=== PATIENT | male | born 1980 | race Caucasian/White ===

== ENCOUNTER 2017-03-25 16:04 | Emergency (ER) | payer OTHER ==
[~2017-03-25] VITALS: Ht 182.9 cm; Wt 99.6 kg
[~2017-03-25 16:04] MED LIST: NAPR1TAB9 PO; PANT40TA PO
[2017-03-25 16:13] VITALS: TEMP 36.4; Ht 182.9 cm; Wt 99.6 kg
[2017-03-25 16:48] VITALS: O2SAT 98
[2017-03-25 17:24] LABS: BASO % 0.6 %; BASO ABS # 0.06 K/uL (0-0.2); COMPLETE YES; EOS % 8.5 %; HEMATOCRIT 47.2 % (42-52); IG% 0.9 %; LYMPH % 28.8 %; MEAN CELL VOLUME 86.1 fL (80-100); MEAN CORPUSCULAR HEMOGLOBIN 28.8 pg (25-34); MEAN CORPUSCULAR HGB CONC 33.5 g/dl (32-36); MEAN PLATELET VOLUME 10.5 fL (7.4-10.4); MONO % 6.7 %; NEUT % 54.5 %; PLATELET COUNT 224 K/uL (130-400); RED BLOOD COUNT 5.48 M/uL (4.7-6.1); WHITE BLOOD COUNT 9.39 K/uL (4.8-10.8)
--- NOTE | 2017-03-25 17:26 | EMERGENCY ROOM VISIT NOTE ---
History First contact with patient: 16:47 Chief Complaint: CHEST PAIN Stated Complaint: THROAT/CHEST/LF ARM PAIN History of Present Illness The patient is a 36 year old male who presents to the Emergency Room with complaints of chest pain. The patient states that approximately 4 hours ago he developed pain in the middle of his chest that radiated to his neck. He states that this made him feel very worried that he was having a heart attack. He states that he then developed pain in his left arm. He states that he feels as though he had a panic attack. He denies any fevers. He denies any chills. He denies any urinary, sore throat, cough. He denies any shortness of breath or pain with deep inspiration. He denies any abdominal pain, nausea or vomiting. He states that he was moving heavy furniture over the weekend for his mother and strained his back. He denies any falls. The patient has a history of GERD but has not been taking his Protonix. He states that his grandmother had CABG but denies any other family history of coronary artery disease. He denies any personal history of cardiac disease. He has had similar symptoms in the past. Review of Systems A 10 system review of systems was completed with positives and pertinent negatives listed in the HPI. Past Medical/Surgical History Medical Problems: (1) GERD (gastroesophageal reflux disease) Social History Smoking Status: Never Smoker Drug Use: none Marital Status: single Housing Status: lives alone Current/Historical Medications Scheduled PRN Naproxen (Aleve), 220 MG PO UD PRN for Pain Allergies Coded Allergies: Nut Tree (Verified Allergy, Unknown, ITCHY LIPS AND THROAT, 03/23/16) Physical Exam Vital Signs Date Time Temp Pulse Resp B/P (MAP) Pulse Ox O2 Delivery O2 Flow Rate FiO2 03/25/17 18:00 67 18 124/79 100 Room Air 03/25/17 16:51 74 03/25/17 16:48 98 Room Air 03/25/17 16:36 56 18 144/89 98 Room Air 03/25/17 16:15 96 Room Air 03/25/17 16:13 36.4 75 18 133/83 94 Room Air Physical Exam VITALS: Vitals are noted on the nurse's note and reviewed by myself. Vital signs stable. The patient is afebrile. He is not tachycardic, tachypneic or hypoxic. GENERAL: This is a 36-year-old male, in no acute distress, nondiaphoretic, well- developed well-nourished. SKIN: The skin was without rashes, erythema, edema, or bruising. There is no tenting of the skin. Capillary reflex less than 2 seconds. HEAD: Normocephalic atraumatic. EARS: The external ears normal in appearance. EYES: Pupils equal round and reactive to light and accommodation. Conjunctivae without injection, sclerae without icterus. Extraocular movements intact. NOSE: Patent, turbinates without inflammation or discharge. MOUTH: Mucous membranes moist. Tonsils are not enlarged. Pharynx without erythema or exudate. Uvula midline. Airway patent. Tongue does not deviate. NECK: Supple without nuchal rigidity. No lymphadenopathy. No thyromegaly. Cervical spine is nontender. No JVD. HEART: Regular rate and rhythm without murmurs gallops or rubs. LUNGS: Clear to auscultation bilaterally without wheezes, rales or rhonchi. No retractions or accessory muscle use. ABDOMEN: Positive bowel sounds x 4. Soft, nontender, without masses or organomegaly. MUSCULOSKELETAL: No muscle atrophy, erythema, or edema noted. Full range of motion in all extremities. Strength 5/5 throughout. NEURO: Patient was alert and oriented to person place and time. No focal neurological deficits. Medical Decision & Procedures ER Provider Diagnostic Interpretation: SINGLE VIEW CHEST CLINICAL HISTORY: Atypical chest pain. FINDINGS: 2 AP, portable, upright chest radiographs are compared to study dated 03/10/2016. The examination is degraded by portable technique and patient rotation. The cardiomediastinal silhouette is unremarkable. The lungs and pleural spaces are clear. No pneumothorax is seen. The bony thorax is grossly intact. IMPRESSION: No active disease in the chest. Laboratory Results 03/25/17 16:45 Red Blood Count 5.48, Mean Corpuscular Volume 86.1, Mean Corpuscular Hemoglobin 28.8, Mean Corpuscular Hemoglobin Concent 33.5, Mean Platelet Volume 10.5, Neutrophils (%) (Auto) 54.5, Lymphocytes (%) (Auto) 28.8, Monocytes (%) (Auto) 6.7, Eosinophils (%) (Auto) 8.5, Basophils (%) (Auto) 0.6, Neutrophils # (Auto) 5.12, Lymphocytes # (Auto) 2.70, Monocytes # (Auto) 0.63, Eosinophils # (Auto) 0.80, Basophils # (Auto) 0.06 03/25/17 16:45 Test 03/25/17 16:45 White Blood Count 9.39 K/uL (4.8-10.8) Red Blood Count 5.48 M/uL (4.7-6.1) Hemoglobin 15.8 g/dL (14.0-18.0) Hematocrit 47.2 % (42-52) Mean Corpuscular Volume 86.1 fL (80-100) Mean Corpuscular Hemoglobin 28.8 pg (25-34) Mean Corpuscular Hemoglobin Concent 33.5 g/dl (32-36) Platelet Count 224 K/uL (130-400) Mean Platelet Volume 10.5 fL (7.4-10.4) Neutrophils (%) (Auto) 54.5 % Lymphocytes (%) (Auto) 28.8 % Monocytes (%) (Auto) 6.7 % Eosinophils (%) (Auto) 8.5 % Basophils (%) (Auto) 0.6 % Neutrophils # (Auto) 5.12 K/uL (1.4-6.5) Lymphocytes # (Auto) 2.70 K/uL (1.2-3.4) Monocytes # (Auto) 0.63 K/uL (0.11-0.59) Eosinophils # (Auto) 0.80 K/uL (0-0.5) Basophils # (Auto) 0.06 K/uL (0-0.2) RDW Standard Deviation 40.5 fL (36.4-46.3) RDW Coefficient of Variation 12.8 % (11.5-14.5) Immature Granulocyte % (Auto) 0.9 % Immature Granulocyte # (Auto) 0.08 K/uL (0.00-0.02) Anion Gap 4.0 mmol/L (3-11) Est Creatinine Clear Calc Drug Dose 103.0 ml/min Estimated GFR () 89.0 Estimated GFR (Non- 76.8 BUN/Creatinine Ratio 8.6 (10-20) Calcium Level 8.5 mg/dl (8.5-10.1) Total Bilirubin 0.3 mg/dl (0.2-1) Aspartate Amino Transf (AST/SGOT) 14 U/L (15-37) Alanine Aminotransferase (ALT/SGPT) 20 U/L (12-78) Alkaline Phosphatase 109 U/L (45-117) Total Protein 7.6 gm/dl (6.4-8.2) Albumin 4.1 gm/dl (3.4-5.0) Globulin 3.5 gm/dl (2.5-4.0) Albumin/Globulin Ratio 1.2 (0.9-2) Procedure The patient was monitored on a care administrative tech. They maintained a normal sinus rhythm without ectopy. ECG Indication: chest pain Rate (beats per minute): 69 Rhythm: normal sinus Findings: no acute ischemic change Change: no significant change ED Course The patient was seen and examined. Previous visits were reviewed. The patient does not have a fever or leukocytosis. He does not have any significant electrolyte abnormality. [id number] troponin was 0. Chest x-ray does not reveal any acute abnormality EKG does not reveal any arrhythmia or ischemia The patient presents to the emergency department with chest pain. The patient moved every furniture yesterday and this could be related to musculoskeletal pain. Additionally, he stopped taking his Protonix. He was advised to take a proton pump inhibitor as recommended by his doctor. The patient does admit to having anxiety and panic attack about chest pain. There does not appear to be any acute ischemia at this time. The patient's pain has been persistent for at least 4 hours and he has negative troponin. He should recheck with his family doctor next week. He should return to the ER with any worsening symptoms. The case was discussed with Dr. Epps who agrees with the assessment and treatment plan. Medical Decision DIFFERENTIAL DIAGNOSIS: Aortic dissection, myocarditis, pericarditis, cervical disc disease, costochondritis, herpes zoster, rib fracture, pleuritis, pneumonia , pulmonary embolus, tension pneumothorax, anxiety disorder, somatoform disorder , choledocholithiasis, status, esophagitis, esophageal spasm, esophageal reflux , esophageal rupture, pancreatitis, peptic ulcer disease, cardiac ischemia, ST elevation [place], acute coronary syndrome, arrhythmia, coronary artery vasospasm. vavular heart disease, coronary artery disease, among others. Impression Primary Impression: Substernal precordial chest pain Departure Information Dispostion Home / Self-Care Condition GOOD Referrals Semaj Roman M.D. (PCP) Patient Instructions Acid Reflux, Chest Pain - [facility], [facility] Additional Instructions restart your stomach medication You may try omeprazole over the counter Recheck with your family doctor next week Return with worsening symptoms
[2017-03-25 17:31] LABS: BUN/CREATININE RATIO 8.6 (10-20); CALCIUM 8.5 mg/dl (8.5-10.1); CREATININE 1.2 mg/dl (0.60-1.40); POTASSIUM 3.8 mmol/L (3.5-5.1)
[2017-03-25 17:33] LABS: ALB/GLOB RATIO 1.2 (0.9-2)
--- NOTE | 2017-03-25 17:49 | DIAGNOSTIC IMAGING REPORT ---
SINGLE VIEW CHEST CLINICAL HISTORY: Atypical chest pain. FINDINGS: 2 AP, portable, upright chest radiographs are compared to study dated 03/10/2016. The examination is degraded by portable technique and patient rotation. The cardiomediastinal silhouette is unremarkable. The lungs and pleural spaces are clear. No pneumothorax is seen. The bony thorax is grossly intact. IMPRESSION: No active disease in the chest. Electronically signed by: Skyler Barkley M.D. 03/25/2017 5:47 PM Dictated Date/Time: 03/25/2017 5:47 PM
[2017-03-25 18:00] VITALS: BP 124/79; PULSE 67; O2SAT 100
== END 2017-03-25 18:25 | disposition home or self-care (01) ==
LOC: C.EDB 16:05 → C.EDA 18:25
DX: R07.2 Precordial pain (principal); K21.9 Gastro-esophageal reflux disease without esophagitis

== ENCOUNTER 2017-08-02 06:44 | Emergency (ER) | payer OTHER ==
[~2017-08-02] VITALS: Ht 182.9 cm; Wt 99.0 kg
[~2017-08-02 06:44] MED LIST changes: -PANT40TA PO
[2017-08-02 06:50] VITALS: TEMP 36.7; Ht 182.9 cm; Wt 99.0 kg
[2017-08-02 07:12] VITALS: O2SAT 97
--- NOTE | 2017-08-02 07:25 | DIAGNOSTIC IMAGING REPORT ---
SINGLE VIEW CHEST CLINICAL HISTORY: Fever. Sepsis. FINDINGS: An AP, portable, upright chest radiograph is compared to study dated 03/25/2017. The examination is degraded by portable technique and apical lordotic positioning. The cardiomediastinal silhouette is unremarkable. The lungs and pleural spaces are clear. No pneumothorax is seen. The bony thorax is grossly intact. IMPRESSION: No active disease in the chest. Electronically signed by: Skyler Barkley M.D. 08/02/2017 7:24 AM Dictated Date/Time: 08/02/2017 7:24 AM
[2017-08-02 07:30] LABS: ISTAT CREATININE 1.2 mg/dl (0.6-1.3); ISTAT HEMOGLOBIN 15.6 g/dl (14.0-18.0); ISTAT IONIZED CALCIUM 1.19 mmol/l (1.12-1.32)
[2017-08-02 07:34] LABS: POINT OF CARE TROPONIN I < 0.030 ng/ml (0-0.045)
--- NOTE | 2017-08-02 07:52 | EMERGENCY ROOM VISIT NOTE ---
History Report prepared by Kenyetta: Josefa Funez Under the Supervision of: Dr. Jermain Sanchez D.O. First contact with patient: 06:54 Chief Complaint: CHEST PAIN Stated Complaint: CHEST,ARM [place] History of Present Illness The patient is a 37 year old male who presents to the Emergency Room with complaints of weird sharp pain in the left chest. The left arm got numb as well. 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 No associated symptoms. Denies trouble breathing. No recent illness, fevers, chills or cough. No nausea, vomiting, diaphoresis. Has had similar symptoms a couple months ago. Can't remember the events surrounding that event. Today the patient was sleeping, awoke, and the pain then started. He thinks he was moving when the pain started. No exertional symptoms recently. The pain is gone now. Source of History: patient Onset: 30 minutes prior to arrival Position: chest (left) Quality: sharp Timing: resolved Associated Symptoms: + numbness (left arm), No fevers, No chills, No diaphoresis, No cough, No nausea, No vomiting Review of Systems As above otherwise negative for 10 systems Past Medical & Surgical Medical Problems: (1) GERD (gastroesophageal reflux disease) Family History Cancer Diabetes mellitus Social History Smoking Status: Never Smoker Drug Use: none Marital Status: single Housing Status: lives alone Current/Historical Medications No Active Prescriptions or Reported Meds Allergies Coded Allergies: Nut Tree (Verified Allergy, Unknown, ITCHY LIPS AND THROAT, 08/02/17) Physical Exam Vital Signs Date Time Temp Pulse Resp B/P (MAP) Pulse Ox O2 Delivery O2 Flow Rate FiO2 08/02/17 07:59 60 18 135/82 97 08/02/17 07:24 97 Room Air 08/02/17 07:13 65 08/02/17 07:12 97 Room Air 08/02/17 06:50 36.7 65 18 135/82 97 Room Air Physical Exam CONSTITUTIONAL/VITAL SIGNS: Reviewed / noted above. GENERAL: Non-toxic in appearance. INTEGUMENTARY: Warm, dry, and [place]. HEAD: Normocephalic. EYES: without scleral icterus or trauma. ENT/OROPHARYNX: clear and moist. LYMPHADENOPATHY/NECK: Is supple without lymphadenopathy or meningismus. RESPIRATORY: Lungs clear and equal. CARDIOVASCULAR: Regular rate and rhythm. GI/ABDOMEN: Soft and nontender. No organomegaly or pulsatile mass. No rebound or guarding. Normal bowel sounds. EXTREMITIES: Warm and well perfused. BACK: No CVA tenderness. NEUROLOGICAL: Intact without focal deficits. PSYCHIATRIC: normal affect. MUSCULOSKELETAL: Normally developed with good muscle tone. TRIAGE NURSING DOCUMENTATION REVIEWED. Medical Decision & Procedures ER Provider Diagnostic Interpretation: X ray results and stated below per my interpretation and radiology interpretation. SINGLE VIEW CHEST CLINICAL HISTORY: Fever. Sepsis. FINDINGS: An AP, portable, upright chest radiograph is compared to study dated 03/25/2017. The examination is degraded by portable technique and apical lordotic positioning. The cardiomediastinal silhouette is unremarkable. The lungs and pleural spaces are clear. No pneumothorax is seen. The bony thorax is grossly intact. IMPRESSION: No active disease in the chest. Electronically signed by: Skyler Barkley M.D. 08/02/2017 7:24 AM Dictated Date/Time: 08/02/2017 7:24 AM Laboratory Results Test 08/02/17 07:15 08/02/17 07:16 Bedside D-Dimer 160 ng/mlFEU (0-450) Bedside Troponin I < 0.030 ng/ml (0-0.045) Bedside Hemoglobin 15.6 g/dl (14.0-18.0) Bedside Hematocrit 46 % (42-52) Bedside Sodium 142 mEq/L (135-144) Bedside Potassium 3.4 mEq/L (3.3-5.0) Bedside Chloride 104 mEq/L (101-112) Bedside Total CO2 26 mEq/l (24-31) Anion Gap 17.0 mmol/L (16-25) Bedside Blood Urea Nitrogen 8 mg/dl (7-18) Bedside Creatinine 1.2 mg/dl (0.6-1.3) Bedside Glucose (other) 101 mg/dl (70-99) Bedside Ionized Calcium (Yamil) 1.19 mmol/l (1.12-1.32) Laboratory results as stated above per my review. ECG Indication: chest pain Rate (beats per minute): 62 Rhythm: normal sinus Findings: no acute ischemic change, no ectopy ED Course 0656: Previous medical records were reviewed. The patient was evaluated in room B3B. A complete history and physical examination was performed. 0753: I reealuated the patient and he is resting comfortably. I discussed the exam findings with him and I discussed the treatment plan. He verbalized complete understanding and agreement. He is ready to go home. Medical Decision the differential that was considered includes acute myocardial infarction, acute coronary syndrome, myocarditis, pericarditis, pericardial effusions / tamponad, esophageal perforation, thoracic aortic dissection, pulmonary embolism , pneumonia, pneumothorax, pancreatitis, shingles, acute cholecystitis, perforated abdominal viscus. This is a 37-year-old male who presents to the ED with a chief complaint of left -sided chest pain. Details listed above. The patient's symptoms started about 30 minutes after he awoke this morning. He states that it was a sharp pain. It is gone now. He had no associated symptoms. Denies any recent illness or fevers or chills. He thinks it might be related to working out yesterday. He states that he just wanted to make sure. He denies any similar medical problems or any significant family history of medical issues. Twelve-lead EKG reveals a normal sinus rhythm without ischemic changes or ectopy. Chest x-ray did not show acute disease. The patient is not anemic. Chemistries were normal. Troponin was negative. D-dimer is negative. The patient was told the results of the test. He is felt to be stable for discharge and outpatient follow up. Medication Reconcilliation Current Medication List: was personally reviewed by me Impression Primary Impression: Non-cardiac chest pain Scribe Attestation The scribe's documentation has been prepared under my direction and personally reviewed by me in its entirety. I confirm that the note above accurately reflects all work, treatment, procedures, and medical decision making performed by me. Departure Information Dispostion Home / Self-Care Prescriptions No Active Prescriptions or Reported Meds Referrals No Doctor, Assigned (PCP) Forms Call Back Authorization, HOME CARE DOCUMENTATION FORM, IMPORTANT VISIT INFORMATION Patient Instructions Chest Pain - [facility] Additional Instructions Follow-up with your doctor for further care and evaluation in 1-2 days. Return to the emergency department for worsening or new symptoms or any concerns. You have been examined and treated today on an emergency basis only. This is not a substitute for, or an effort to provide, complete comprehensive medical care. It is impossible to recognize and treat all injuries or illnesses in a single emergency department visit. It is therefore important that you follow up closely with your doctor. Call as soon as possible for an appointment.
[2017-08-02 07:59] VITALS: BP 135/82; PULSE 60; O2SAT 97
== END 2017-08-02 07:59 | disposition home or self-care (01) ==
LOC: C.EDB 06:45
DX: R07.89 Other chest pain (principal); K21.9 Gastro-esophageal reflux disease without esophagitis; Z80.9 Family history of malignant neoplasm, unspecified; Z83.3 Family history of diabetes mellitus